=== PATIENT | female | born 1995 | race Caucasian/White ===

== ENCOUNTER 2018-06-17 06:15 | Inpatient (IN) | payer MEDICAID ==
[2018-06-17 07:00] LABS: ADD MAN DIFF? NO
[2018-06-17] MEDS ORDERED: MISOPROSTOL 200 MCG TAB PR ×2 (07:00→13:00)
[2018-06-17] MEDS ORDERED: CARBOPROST 250 MCG INJ IM ×2 (07:00→13:00)
[2018-06-17] MEDS ORDERED: METHYLERGONOVINE 0.2 MG INJ IM ×2 (07:00→13:00)
[2018-06-17] MEDS ORDERED: OXYTOCIN 30 UNITS/LR 500 ML IV ×5 (07:00→13:00)
[2018-06-17 07:02] LABS: WHITE BLOOD COUNT 9.9 10^3/ul (4.8-10.8)
[2018-06-17 07:02] LABS: BASOPHILS % 0.3 % (0.0-2.0); EOSINOPHILS # 0.1 10^3/ul (0.0-0.5); HEMATOCRIT 36.1 % (37.0-47.0); LYMPHOCYTES # 2.9 10^3/ul (0.8-2.9); MEAN CORPUSCULAR HEMOGLOBIN 27.8 pg (29.0-33.0); MEAN CORPUSCULAR HGB CONC 33.2 g/dl (32.0-37.0); MEAN CORPUSCULAR VOLUME 83.8 fl (82.0-101.0); MEAN PLATELET VOLUME 8.8 fl (7.4-10.4); MONOCYTE # 0.5 10^3/ul (0.3-0.9); MONOCYTES % 5.2 % (0.0-11.0); NEUTROPHIL # 6.4 10^3/ul (1.6-7.5); NEUTROPHILS % 63.9 % (39.0-77.0); PLATELET COUNT 338 10^3/UL (140-415); RED BLOOD COUNT 4.31 10^6/ul (4.20-5.40); RED CELL DISTRIBUTION WIDTH 13.8 % (11.5-14.5)
[2018-06-17 07:22] LABS: INR 0.86; PROTIME 11.8 Sec (11.9-14.9); PT RATIO 0.9
[2018-06-17 07:23] LABS: PARTIAL THROMBOPLASTIN TIME 33.2 Sec (23.0-35.0)
[2018-06-17] MEDS: LACTATED RINGER'S 1,000 ML IV ×3 (07:58→20:39)
[2018-06-17] MEDS: FAMOTIDINE 20 MG INJ IV (08:31)
[2018-06-17] MEDS: CITRIC ACID/NA CITRATE 30 ML CUP PO (08:31)
[2018-06-17] MEDS: METOCLOPRAMIDE 10 MG INJ IV (08:31)
[2018-06-17] MEDS ORDERED: morphine SULFATE/PF (10 MG/10 ML) INJ (09:04)
[2018-06-17] MEDS ORDERED: ONDANSETRON 4 MG INJ (09:11)
[2018-06-17] MEDS ORDERED: PHENYLephrine (100 MCG/ML) 5ML SYG ×3 (09:12→09:50)
[2018-06-17] MEDS ORDERED: PROCHLORPERAZINE 10 MG INJ IV (10:00)
[2018-06-17] MEDS ORDERED: HYDROmorphONE 1 MG/5 ML IV SYRINGE IV ×3 (10:00)
[2018-06-17] MEDS ORDERED: KETOROLAC 30 MG INJ IV (10:00)
[2018-06-17] MEDS ORDERED: DIPHENHYDRAMINE 50 MG INJ IV ×2 (10:00→12:00)
[2018-06-17] MEDS ORDERED: FENTAnyl 50 MCG/ML VIAL IV ×3 (10:00)
[2018-06-17] MEDS ORDERED: ONDANSETRON 4 MG INJ IV ×2 (10:00→12:00)
[2018-06-17] MEDS ORDERED: MEPERIDINE 25 MG INJ IV (10:00)
[2018-06-17] MEDS: CEFAZOLIN 2 GM/50 ML (PMX) 50 ML IVPB (10:34)
[2018-06-17] MEDS: OXYTOCIN 30 UNITS/LR 500 ML IV (11:00)
[2018-06-17] MEDS ORDERED: NALOXONE (0.4 MG/ML) INJ IV (12:00)
[2018-06-17] MEDS ORDERED: HYDROmorphONE 0.5 MG/0.5 ML SYG IV ×2 (12:00)
[2018-06-17] MEDS ORDERED: ZOLPIDEM 5 MG TAB PO (12:00)
[2018-06-17] MEDS ORDERED: NACL 0.9% 3 ML SYG IV (13:00)
[2018-06-17] MEDS ORDERED: NA PHOSPHATE/BIPHOS 133 ML ENEMA PR (13:00)
[2018-06-17 21:58] LABS: RAPID PLASMA REAGIN NONREACTIVE (NR)
[2018-06-18] MEDS: KETOROLAC 30 MG INJ IV (05:04)
[2018-06-18 08:24] LABS: ADD MAN DIFF? NO
[2018-06-18 08:32] LABS: WHITE BLOOD COUNT 9.1 10^3/ul (4.8-10.8)
[2018-06-18 08:32] LABS: BASOPHILS % 0.1 % (0.0-2.0); EOSINOPHILS % 0.4 % (0.0-7.0); HEMATOCRIT 29.8 % (37.0-47.0); HEMOGLOBIN 9.9 g/dl (12.0-16.0); LYMPHOCYTES % 22.2 % (15.0-51.0); MEAN CORPUSCULAR HEMOGLOBIN 27.8 pg (29.0-33.0); MEAN CORPUSCULAR HGB CONC 33.2 g/dl (32.0-37.0); MEAN CORPUSCULAR VOLUME 83.7 fl (82.0-101.0); MONOCYTE # 0.6 10^3/ul (0.3-0.9); MONOCYTES % 6.5 % (0.0-11.0); NEUTROPHIL # 6.4 10^3/ul (1.6-7.5); NEUTROPHILS % 70.5 % (39.0-77.0); PLATELET COUNT 293 10^3/UL (140-415); RED BLOOD COUNT 3.56 10^6/ul (4.20-5.40); RED CELL DISTRIBUTION WIDTH 14.1 % (11.5-14.5)
[2018-06-18] MEDS: IBUPROFEN 800 MG TAB PO ×3 (09:08→21:31)
[2018-06-18] MEDS: HYDROCODONE/APAP (5/325) TAB PO (10:55)
[2018-06-18] MEDS: LANOLIN HPA 1 PKT TOP (18:27)
[2018-06-19] MEDS: HYDROCODONE/APAP (5/325) TAB PO ×2 (03:00→12:24)
[2018-06-19] MEDS: IBUPROFEN 800 MG TAB PO ×3 (05:44→21:35)
[2018-06-19] MEDS: LANOLIN HPA 1 PKT TOP (15:38)
[2018-06-20] MEDS: HYDROCODONE/APAP (5/325) TAB PO (04:28)
[2018-06-20] MEDS: IBUPROFEN 800 MG TAB PO (05:48)
[2018-06-20] MEDS: MEASLES,MUMPS,RUBELLA VACCINE INJ SC* (09:00)
[2018-06-20] MEDS: DIPHTH/TET/ACEL PERTUSS (ADULT) 0.5 ML VIAL IM* (11:31)
== END 2018-06-20 12:42 | disposition home or self-care (01) | DRG 788 ==
LOC: L-D 06:15 → PP1 12:42
PROVIDERS: Obstetrics & Gynecology
PROC: 10D00Z1 Extraction of Products of Conception, Low, Open Approach (ICD-10-PCS; principal; 2018-06-17 09:00)
DX: O34.211 Maternal care for low transverse scar from previous cesarean delivery (principal); Z3A.39 39 weeks gestation of pregnancy; Z37.0 Single live birth
CPT/HCPCS: 85025; 85610; 85730; 86592; 86850; 86900; 86901; 90715; 99464